=== PATIENT | male | born 1940 | race Caucasian/White ===

== ENCOUNTER → 2020-04-17 | Day surgery (SDC) | payer OTHER ==
[~2020-04-17] MED LIST: AMLODIPINE BESY10 MG PO; ATORVASTATIN CA40 MG PO; BAYER CHEWABLE81 MG PO; COZAAR100 MG PO; ENDOCET 10-3251 EACH PO; NOVOLOG MI100 UNIT/2 SC; OXYCONTIN20 MG PO; PLAVIX75 MG PO
== END | disposition home or self-care (01) ==
LOC: OR 06:34
PROVIDERS: Internal Medicine Gastroenterology
PROC: 0DBP8ZX Excision of Rectum, Via Natural or Artificial Opening Endoscopic, Diagnostic (ICD-10-PCS; 2020-04-17)
PROC: 0DB68ZX Excision of Stomach, Via Natural or Artificial Opening Endoscopic, Diagnostic (ICD-10-PCS; principal; 2020-04-17 07:57)
PROC: 0DB78ZX Excision of Stomach, Pylorus, Via Natural or Artificial Opening Endoscopic, Diagnostic (ICD-10-PCS; 2020-04-17 07:57)
DX: K29.50 Unspecified chronic gastritis without bleeding (principal); K25.9 Gastric ulcer, unspecified as acute or chronic, without hemorrhage or perforation; D12.8 Benign neoplasm of rectum; Q43.8 Other specified congenital malformations of intestine; D50.0 Iron deficiency anemia secondary to blood loss (chronic); K64.0 First degree hemorrhoids; E11.9 Type 2 diabetes mellitus without complications; I10 Essential (primary) hypertension; E78.00 Pure hypercholesterolemia, unspecified; K21.9 Gastro-esophageal reflux disease without esophagitis; E78.5 Hyperlipidemia, unspecified; E66.01 Morbid (severe) obesity due to excess calories; Z68.36 Body mass index [BMI] 36.0-36.9, adult; Z87.891 Personal history of nicotine dependence; Z79.82 Long term (current) use of aspirin; Z79.02 Long term (current) use of antithrombotics/antiplatelets; Z79.899 Other long term (current) drug therapy; Z79.4 Long term (current) use of insulin; Z95.5 Presence of coronary angioplasty implant and graft; Z20.822 Contact with and (suspected) exposure to COVID-19
CPT/HCPCS: 82962; 88342; J2704; J7040

== ENCOUNTER 2020-12-05 11:46 | Emergency (ER) | payer OTHER ==
[2020-12-05] MEDS ORDERED: MORPHINE SULFAT15 M1 PO (14:30)
== END 2020-12-05 16:50 | disposition home or self-care (01) ==
LOC: ER1 11:46
DX: S22.069A Unspecified fracture of T7-T8 vertebra, initial encounter for closed fracture (principal); I11.9 Hypertensive heart disease without heart failure; E11.9 Type 2 diabetes mellitus without complications; W01.0XXA Fall on same level from slipping, tripping and stumbling without subsequent striking against object, initial encounter
CPT/HCPCS: 71046; 72128; 93005; 96374; 96375; 99284; J1885; J2270